=== PATIENT | male | born 1950 | race Caucasian/White ===

== ENCOUNTER 2018-08-20 09:41 | Emergency (ER) | payer MEDICARE, OTHER ==
[2018-08-20 10:00] LABS: CHLORIDE,CL 107 mEq/L (98-106); SODIUM,NA 143 mEq/L (136-145)
--- NOTE | 2018-08-20 10:16 | EDM.PDOC ---
ED HPI GENERAL MEDICAL PROBLEM - General Chief Complaint: Chest Pain Stated Complaint: chest pain Time Seen by Provider: 08/20/18 09:45 Source of Information: Reports: Patient History Limitations: Reports: No Limitations - History of Present Illness Onset: Gradual Onset Date: 08/14/18 (after patient was lifting some pallets one week ago pain started gradully gotten worse over last 24 hours which brought him to the ER . ) Duration: Day(s): Location: Reports: Chest Improves with: Reports: Rest Worsens with: Reports: Movement Context: Reports: Activity Associated Symptoms: Denies: Cough, Diaphoresis, Fever/Chills, Nausea/Vomiting, Shortness of Breath Treatments STUNT PERSON: Reports: Aspirin, Other (see below) (nitro) Chest Pain Score (Numeric/FACES): 2 - Related Data Allergies Allergy/AdvReac Type Severity Reaction Status Date / Time No Known Allergies Allergy Verified 08/20/18 09:52 Home Meds: Home Meds RX: Aspirin [Halfprin] 81 mg PO DAILY 04/28/17 [History] RX: Lisinopril 10 mg PO DAILY 04/28/17 [History] RX: Metoprolol Succinate 25 mg PO DAILY 04/28/17 [History] RX: Nitroglycerin 0.4 mg PO ASDIRECTED PRN 04/28/17 [History] Ticagrelor [Brilinta] 90 mg PO BID 04/28/17 [History] atorvaSTATin Calcium [Atorvastatin Calcium] 40 mg PO DAILY 04/28/17 [History] RX: amLODIPine [Norvasc] 5 mg PO DAILY 08/20/18 [History] Past Medical History Cardiovascular History: Reports: CAD, High Cholesterol, Hypertension, ND, Stents Other Cardiovascular History: [facility], said he passed out, heart stopped, brought by ambulance to [place], had ND and Stents placed 04-07-17, might need another stent placed will discuss with cardiol has appt next week; saw Dr. Larson for followup on 04-20-17--says his ribs and chest is sore from the CPR. H/ o BPH, Gout, hyperlipidemia, hypertension; since [facility]CA ND: chest sore, groin area where angio insertion site healing, SOB improving appetite good, denies dizziness, has some insomnia getting a good position because of his chest discomfort, legs somewhat weak, but getting better, is driving now, was told not to lift more than 5 lbs for awhile. 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 Social & Family History - Tobacco Use Smoking Status *Q: Never Smoker - Caffeine Use Caffeine Use Comment: decaff coffee since PTCA--discussed - Alcohol Use Days Per Week of Alcohol Use: 3 Number of Drinks Per Day: 1 Total Drinks Per Week: 3 - Recreational Drug Use Recreational Drug Use: No - Living Situation & Occupation Living situation: Reports: ED ROS GENERAL - Review of Systems Review Of Systems: See Below Constitutional: Reports: No Symptoms HEENT: Reports: No Symptoms Respiratory: Denies: Shortness of Breath Cardiovascular: Reports: Chest Pain. Denies: Blood Pressure Problem, Dyspnea on Exertion, Lightheadedness, Orthopnea, Palpitations Endocrine: Reports: No Symptoms GI/Abdominal: Reports: No Symptoms Skin: Reports: No Symptoms Neurological: Reports: No Symptoms Psychiatric: Reports: No Symptoms ED EXAM, GENERAL - Physical Exam Exam: See Below Exam Limited By: No Limitations General Appearance: Alert, WD/WN, No Apparent Distress Ears: Normal External Exam, Normal Canal, Hearing Grossly Normal, Normal TMs Nose: Normal Inspection, Normal Mucosa, No Blood Throat/Mouth: Normal Inspection, Normal Lips, Normal Teeth, Normal Gums, Normal Oropharynx, Normal Voice, No Airway Compromise Head: Atraumatic Neck: Normal Inspection Respiratory/Chest: No Respiratory Distress, Lungs Clear, Normal Breath Sounds, No Accessory Muscle Use, Chest Non-Tender Cardiovascular: Normal Peripheral Pulses, Regular Rate, Rhythm, No Edema, No Gallop, No JVD, No Murmur, No Rub Peripheral Pulses: 4+: Carotid (L), Carotid (R), Brachial (L), Brachial (R), Radial (L), Radial (R), Femoral (L), Femoral (R) GI/Abdominal: Normal Bowel Sounds, Soft, Non-Tender, No Distention Extremities: Normal Inspection, Normal Range of Motion, Non-Tender, No Pedal Edema, Normal Capillary Refill Neurological: Alert, Oriented, CN II-XII Intact, Normal Cognition, Normal Gait, Normal Reflexes, No Motor/Sensory Deficits Psychiatric: Normal Affect, Normal Mood Skin Exam: Warm, Dry, Intact, Normal Color, No Rash EKG INTERPRETATION EKG Date: 08/20/18 (NSR ) Rhythm: NSR [place]: Normal P-Wave: Present QRS: Normal ST-T: Normal QT: Normal Comparison: NA - No Prior EKG Course - Vital Signs Text/Narrative:: patient had IV established and blood work obtained. EKG found to be stable/ no acute changes. Last Recorded V/S: Last Vital Signs Temp 97.5 F 08/20/18 10:25 Pulse 64 08/20/18 12:00 Resp 18 08/20/18 12:00 BP 134/88 08/20/18 12:00 Pulse Ox 97 08/20/18 12:00 - Orders/Labs/Meds Orders: Active Orders 24 hr Category Date Time Status CXR [Chest 2V] [CR] Stat Exams 08/20/18 09:33 Taken Labs: Laboratory Tests 08/20/18 08/20/18 08/20/18 Range/Units 09:40 09:40 09:40 WBC 7.8 (5.0-10.0) 10^3/uL RBC 4.91 (4.50-6.00) 10^6/uL Hgb 15.8 (14.0-18.0) g/dL Hct 46.8 (40.0-54.0) % MCV 95.3 H (82.0-94.0) fL MCH 32.2 H (27.0-32.0) pg MCHC 33.8 (33.0-38.0) g/dL RDW Coeff of [place] 13.0 (11.0-15.0) % Plt Count 216 (150-400) 10^3/uL Neut % (Auto) 58.9 (35-85) % Lymph % (Auto) 22.1 (10-55) % Mccracken % (Auto) 10.4 (0-16) % Eos % (Auto) 7.8 H (0-5) % Baso % (Auto) 0.8 (0-3) % Neut # (Auto) 4.59 (1.80-7.00) 10^3/uL Lymph # (Auto) 1.72 (1.00-4.80) 10^3/uL M[place]racken # (Auto) 0.81 H (0.00-0.80) 10^3/uL Eos # (Auto) 0.61 H (0.00-0.45) 10^3/uL Baso # (Auto) 0.06 10^3/uL PT 9.8 (9.7-12.3) SEC INR 0.94 (0.92-1.18) APTT 25.6 (23.2-32.3) SEC D-Dimer, Quantitative (0.00-0.50) Sodium 143 (136-145) mEq/L Potassium 4.4 (3.5-5.0) mEq/L Chloride 107 H (98-106) mEq/L Carbon Dioxide 27 (21-32) mmol/L BUN 28 H (7-18) mg/dL Creatinine 1.5 H (0.7-1.3) mg/dL Est Cr Clr Drug Dosing 38.46 mL/min Estimated GFR (MDRD) 47 L (>=60) mL/min Glucose 115 H (75-99) mg/dL Calcium 9.2 (8.4-10.1) mg/dL Total Bilirubin 0.9 (0.0-1.0) mg/dL AST 31 (15-37) U/L ALT 69 (12-78) U/L Alkaline Phosphatase 93 (46-116) U/L Lactate Dehydrogenase 209 H (100-190) U/L Creatine Kinase 221 (35-232) U/L Troponin I < 0.017 (0.00-0.06) ng/mL NT-Pro-B Natriuret Pep (0-1000) pg/mL Total Protein 7.8 (6.4-8.2) g/dL Albumin 4.1 (3.4-5.0) g/dL 08/20/18 08/20/18 08/20/18 Range/Units 09:40 09:40 12:10 WBC (5.0-10.0) 10^3/uL RBC (4.50-6.00) 10^6/uL Hgb (14.0-18.0) g/dL Hct (40.0-54.0) % MCV (82.0-94.0) fL MCH (27.0-32.0) pg MCHC (33.0-38.0) g/dL RDW Coeff of P[place] (11.0-15.0) % Plt Count (150-400) 10^3/uL Neut % (Auto) (35-85) % Lymph % (Auto) (10-55) % M[place]rack[place] % (Auto) (0-16) % Eos % (Auto) (0-5) % Baso % (Auto) (0-3) % Neut # (Auto) (1.80-7.00) 10^3/uL Lymph # (Auto) (1.00-4.80) 10^3/uL M[place]racken # (Auto) (0.00-0.80) 10^3/uL Eos # (Auto) (0.00-0.45) 10^3/uL Baso # (Auto) 10^3/uL PT (9.7-12.3) SEC INR (0.92-1.18) APTT (23.2-32.3) SEC D-Dimer, Quantitative 0.35 (0.00-0.50) Sodium (136-145) mEq/L Potassium (3.5-5.0) mEq/L Chloride (98-106) mEq/L Carbon Dioxide (21-32) mmol/L BUN (7-18) mg/dL Creatinine (0.7-1.3) mg/dL Est Cr Clr Drug Dosing mL/min Estimated GFR (MDRD) (>=60) mL/min Glucose (75-99) mg/dL Calcium (8.4-10.1) mg/dL Total Bilirubin (0.0-1.0) mg/dL AST (15-37) U/L ALT (12-78) U/L Alkaline Phosphatase (46-116) U/L Lactate Dehydrogenase (100-190) U/L Creatine Kinase (35-232) U/L Troponin I < 0.017 (0.00-0.06) ng/mL NT-Pro-B Natriuret Pep 34 (0-1000) pg/mL Total Protein (6.4-8.2) g/dL Albumin (3.4-5.0) g/dL Meds: Medications Discontinued Medications Generic Name Dose Route Start Last Admin Trade Name Freq PRN Reason Stop Dose Admin Nitroglycerin 0.4 mg 08/20/18 10:19 08/20/18 10:19 Nitrostat SL 08/20/18 10:20 0.4 mg ONETIME ONE Administration - Radiology Interpretation Free Text/Narrative:: CXR negative per radiology report for any acute findings. - Re-Assessments/Exams Free Text/Narrative Re-Assessment/Exam: 08/20/18 12:04 Patient had negative EKG/ CXR /. labs troponin negative and on reevaluation in discomfort. Spoke to him about this being non cardiac in nature. and will repeat troponin--- prior to d/c second troponin negative / patient pain free-- will follow up with PCP and or cardiology on . 08/20/18 12:52 Departure - Departure Time of Disposition: 12:53 Disposition: Home, Self-Care 01 Condition: Good Clinical Impression: Atypical chest pain Instructions: Chest Wall Pain, [id number], Chest Wall Pain Referrals: PCP,Unknown [Primary Care Provider] - Forms: ED Department Discharge Additional Instructions: Call your Primary care and or [facility] on Wednesday for recheck. Return for any worsening symptoms. Use tylenol and Motrin over the counter for pain. - Problem List Review Problem List Initiated/Reviewed/Updated: Yes - My Orders Last 24 Hours: My Active Orders 08/20/18 09:33 CXR [Chest 2V] [CR] Stat - Assessment/Plan Last 24 Hours: My Active Orders 08/20/18 09:33 CXR [Chest 2V] [CR] Stat Plan: Patient to return if worse and to follow up with Cardiology and or PCP on .
[2018-08-20] MEDS ORDERED: Nitroglycerin 0.4 MG Tab.SL SL ONE (10:19)
== END 2018-08-20 13:05 | disposition home or self-care (01) ==
LOC: CC.ED 09:41
DX: R07.89 Other chest pain (principal); I25.10 Atherosclerotic heart disease of native coronary artery without angina pectoris; E78.00 Pure hypercholesterolemia, unspecified; I10 Essential (primary) hypertension; I25.2 Old myocardial infarction; Z79.82 Long term (current) use of aspirin; Z79.899 Other long term (current) drug therapy; Z95.5 Presence of coronary angioplasty implant and graft
CPT/HCPCS: 36415; 71046; 80053; 82550; 83615; 83880; 84484; 85025; 85379; 85610; 85730; 93005; 99285; A9270-GY